=== PATIENT | female | born 1985 | race Caucasian/White ===

== ENCOUNTER 2023-09-09 14:19 | Emergency (ER) | payer MEDICAID ==
[~2023-09-09] VITALS: Ht 165.1 cm; Wt 71.7 kg
[2023-09-09 14:28] VITALS: BP 156/99
== END 2023-09-09 16:37 | disposition home or self-care (01) ==
LOC: ER 14:19
DX: J18.9 Pneumonia, unspecified organism (principal)
CPT/HCPCS: 71046; 99285-25; A9270; J7512